=== PATIENT | female | born 2000 | race Caucasian/White ===

== ENCOUNTER 2024-01-19 01:01 | Emergency (ER) | payer OTHER ==
[2024-01-19] MEDS ORDERED: Ibuprofen 200 MG TAB ONE (03:00)
[2024-01-19] MEDS ORDERED: predniSONE 20 MG TAB ONE (03:01)
== END 2024-01-19 03:45 | disposition home or self-care (01) ==
LOC: ERS 01:01
DX: J06.9 Acute upper respiratory infection, unspecified (principal); J02.9 Acute pharyngitis, unspecified; R50.9 Fever, unspecified
CPT/HCPCS: 87428; 99283; J7512